=== PATIENT | male | born 2000 | race Caucasian/White ===

== ENCOUNTER 2022-04-15 20:23 | Emergency (ER) | payer OTHER ==
[~2022-04-15] VITALS: Ht 170.2 cm; Wt 83.9 kg
[2022-04-15] MEDS ORDERED: ZYRTEC10 M3 PO (22:36)
[2022-04-15] MEDS ORDERED: TUSNEL LIQUID178 ML PO (22:36)
[2022-04-15] MEDS ORDERED: ZITHROMAX500 MG PO (22:36)
== END 2022-04-15 22:40 | disposition home or self-care (01) ==
LOC: ER 20:23
DX: B34.8 Other viral infections of unspecified site (principal)